=== PATIENT | female | born 1945 | race Caucasian/White ===

== ENCOUNTER → 2019-04-24 12:58 | Outpatient (CLI) | payer MEDICARE, BC | END | disposition home or self-care (01) | LOC: D.US 04-23 13:30 | PROVIDERS: ATTEND Family Medicine | DX: E04.0 Nontoxic diffuse goiter (principal) ==

== ENCOUNTER → 2019-05-18 12:24 | Outpatient (CLI) | payer MEDICARE, BC ==
--- NOTE | 2019-05-25 18:38 | EC ---
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 Haynes TAPE# PACS Pericardial Effusion N DATE OF SERVICE: FINDINGS: 1. Left ventricular chamber size is mildly dilated. Left ventricular systolic function is preserved. Overall ejection fraction estimated at 55%. 2. Left atrium is within normal limits at 3.3 cm. Right atrium and right ventricular chamber sizes are mildly dilated. 3. Valvular structures have normal structure and motion. 4. Doppler interrogation reveals mild mitral regurgitation, moderate tricuspid regurgitation, no other valvular insufficiency or stenosis. Pulmonary systolic ECHOCARDIOGRAM REPORT [id number] NEFTALI AMADOR pressure is estimated 33 mmHg. 5. No evidence of pericardial effusion or left ventricular thrombus. TRANSINT:[id number] Voice Confirmation ID: [id number] DOCUMENT ID: [id number] ANMOL HAYNES MD at 1838 CC: [id number] DICTATION DATE: 05/19/19 0647 BUILDING CONSTRUCTION CONTRACTOR: 05/19/19 0819 DEP CLI 05/18/19 [place] [id number] [place] [id number]
== END | disposition home or self-care (01) ==
LOC: D.HCCARDIO 12:24
PROVIDERS: ATTEND Internal Medicine Interventional Cardiology
DX: I34.0 Nonrheumatic mitral (valve) insufficiency (principal)

== ENCOUNTER → 2019-06-12 09:49 | Outpatient (CLI) | payer MEDICARE, BC | END | disposition home or self-care (01) | LOC: D.MRI 09:49 | PROVIDERS: ATTEND Family Medicine | DX: M50.00 Cervical disc disorder with myelopathy, unspecified cervical region (principal) ==

== ENCOUNTER 2021-05-08 15:35 | Outpatient (CLI) | payer MEDICARE, BC ==
[2020-09-02 09:57] VITALS: BMI 45.4
[~2021-05-08 15:35] MED LIST: AVAPRO150 MG PO; LIPITOR40 MG PO; LOVENOX40 MG/0.4 SC; MEDROL DOSE PACK4 MG PO; METFORMIN HCL500 M1 PO; SYNTHROID100 MCG PO; TENORMIN25 MG PO; TRULICITY1.5 MG/0.5 SC; VENTOLIN HFA [SP8 GM INH; VOLTAREN75 MG PO; XALATAN 0.0052.5 ML EACH EYE; ZYLOPRIM300 MG PO
== END 2021-05-08 23:59 | disposition home or self-care (01) ==
LOC: D.MAMMO 15:35
PROVIDERS: ATTEND Family Medicine
DX: Z12.31 Encounter for screening mammogram for malignant neoplasm of breast (principal)